=== PATIENT | male | born 1945 | race Caucasian/White ===

== ENCOUNTER 2024-03-22 21:51 | Inpatient (IN) | payer MEDICARE, BC ==
[~2024-03-22 21:51] MED LIST: Iopamidol 370 76% 100 ML VIAL ONE
[2024-03-22] MEDS ORDERED: Morphine 4 MG/ML VIAL ONE (23:37)
[2024-03-22 23:41] LABS: #Basophils 0.06 10x3/uL (0.0-0.2); #Monocytes 0.84 10x3/uL (0.0-1.1); #Neutrophils 8.64 10x3/uL (1.5-8.4); %Basophils 0.6 % (0.0-2.0); %Eosinophils 1.8 % (0.0-6.0); %Lymphocytes 9.6 % (18.0-47.0); %Monocytes 7.8 % (0.0-10.0); %Neutrophils 79.8 % (40.0-75.0); Hematocrit 47.6 % (38.8-50.0); Hemoglobin 16.4 g/dL (13.5-17.5); Mean Corpuscular HGB CONC 34.5 g/dL (32.0-36.0); Mean Corpuscular Hemoglobin 30.2 pg (27.0-33.0); Mean Corpuscular Volume 87.7 fL (81.2-95.1); Mean Platelet Volume 10.4 fL (7.4-10.4); Platelet Count 186 10x3/uL (150-450); RBC Distribution Width 13.3 % (11.5-14.5); Red Blood Cell (RBC) Count 5.43 10x6/uL (4.32-5.72); White Blood Cell (WBC) Count 10.8 10x3/uL (3.5-10.5)
[2024-03-22 23:45] LABS: ALT (SGPT) 24 U/L (8-55); AST (SGOT) 17 U/L (5-34); Albumin 4.3 g/dL (3.4-4.8); Alkaline Phosphatase 139 U/L (40-110); Anion Gap 15 mmol/L (10-20); BUN (Urea Nitrogen) 21 mg/dL (8.4-25.7); Bilirubin, Total 0.4 mg/dL (0.2-1.2); Calc. Creatinine Clearance 0 mL/min (70-130); Calcium 10.1 mg/dL (7.8-10.44); Carbon Dioxide 25 mmol/L (23-31); Chloride 98 mmol/L (98-107); Estimated GFR 88; Globulin 3.2 g/dL (2.4-3.5); Glucose 320 mg/dL (83-110); Lipase 10 U/L (8-78); Potassium 4.6 mmol/L (3.5-5.1); Protein, Total 7.5 g/dL (5.8-8.1); Sodium 133 mmol/L (136-145)
[2024-03-22 23:51] LABS: Troponin I 0.014 ng/mL (< 0.028)
[2024-03-23] MEDS ORDERED: Morphine 4 MG/ML VIAL ONE (00:49)
[2024-03-23] MEDS ORDERED: fentaNYL 50 mcg/mL 1 mL Vial ONE ×2 (00:57→08:03)
[2024-03-23] MEDS ORDERED: Lactulose 20 GM (30 mL) UDCUP ONE (02:58)
[2024-03-23] MEDS ORDERED: Senokot S 8.6-50 MG TAB ONE ×2 (02:59→08:24)
[2024-03-23 03:41] LABS: Bilirubin Neg (Negative); Blood, Urine 25 (Negative); Clarity Slightly Cloudy (Clear); Glucose, Urine (Dipstick) >=1000 mg/dL (Negative); Ketone, Urine 15 mg/dL (Negative); Leukocyte 500 (Negative); Nitrite Positive (Negative); Protein, Urine (Dipstick) 100 mg/dl (Neg-Trace)
[2024-03-23] MEDS ORDERED: Glucagon 1 MG/ML KIT IM PRN (03:47)
[2024-03-23] MEDS ORDERED: Dextrose 5% in Water 1,000 ML IV PRN (03:47)
[2024-03-23] MEDS ORDERED: Ondansetron PF 4 MG/2 ML Vial IVP PRN (03:47)
[2024-03-23] MEDS ORDERED: Dextrose 50% Abboject 50 ML SYRINGE SLOW IVP PRN (03:47)
[2024-03-23] MEDS ORDERED: Bisacodyl 10 MG SUPP PR PRN (03:50)
[2024-03-23 03:52] LABS: Bacteria/HPF 4+ HPF (None Seen); CAUTI Indications for Culture Pelvic or flank pain; RBC/HPF 0-3 HPF (0-3); Squamous Epithelial 0-3 HPF (0-3); WBC/HPF Greater Than 50 HPF (0-3)
[2024-03-23 03:54] LABS: Urine Culture Reflex Yes Yes
[2024-03-23] MEDS ORDERED: cefTRIAXone (ROCEPHIN) 2 GM VIAL ONE (03:54)
[2024-03-23] MEDS ORDERED: Pantoprazole 40 MG VIAL ONE (07:40)
[2024-03-23] MEDS: Sodium Chloride 0.9% 1,000 ML IV SCH ×2 (08:00→14:34)
[2024-03-23] MEDS: Pantoprazole 40 MG VIAL IVP SCH ×2 (08:01→22:45)
[2024-03-23] MEDS ORDERED: Sucralfate 1 GM/10 ML UDCUP ONE (08:03)
[2024-03-23] MEDS: Sucralfate 1 GM TAB PO SCH (08:16)
[2024-03-23] MEDS: fentaNYL 50 mcg/mL 1 mL Vial SLOW IVP PRN (08:16)
[2024-03-23] MEDS: Baclofen 10 MG TAB PO SCH (08:47)
[2024-03-23] MEDS: Polyethylene Glycol 3350 17 GM Packet PO SCH ×2 (08:47→14:29)
[2024-03-23] MEDS: Senokot S 8.6-50 MG TAB PO SCH (08:47)
[2024-03-23] MEDS: Glimepiride 4 MG TAB PO SCH (08:47)
[2024-03-23] MEDS: Alogliptin 6.25 MG TAB PO SCH (08:47)
[2024-03-23 08:51] LABS: #Basophils 0.03 10x3/uL (0.0-0.2); #Eosinophils 0.01 10x3/uL (0.0-0.5); #Monocytes 1.95 10x3/uL (0.0-1.1); #Neutrophils 16.19 10x3/uL (1.5-8.4); %Basophils 0.2 % (0.0-2.0); %Eosinophils 0.1 % (0.0-6.0); %Monocytes 10.5 % (0.0-10.0); %Neutrophils 86.9 % (40.0-75.0); Anion Gap 19 mmol/L (10-20); BUN (Urea Nitrogen) 24 mg/dL (8.4-25.7); Calc. Creatinine Clearance 0 mL/min (70-130); Calcium 9.2 mg/dL (7.8-10.44); Carbon Dioxide 18 mmol/L (23-31); Chloride 104 mmol/L (98-107); Estimated GFR 91; Glucose 308 mg/dL (83-110); Hematocrit 47.2 % (38.8-50.0); Hemoglobin 15.9 g/dL (13.5-17.5); Mean Corpuscular HGB CONC 33.7 g/dL (32.0-36.0); Mean Corpuscular Hemoglobin 29.4 pg (27.0-33.0); Mean Corpuscular Volume 87.4 fL (81.2-95.1); Mean Platelet Volume 10.4 fL (7.4-10.4); Platelet Count 172 10x3/uL (150-450); Potassium 4.6 mmol/L (3.5-5.1); RBC Distribution Width 13.6 % (11.5-14.5); Sodium 136 mmol/L (136-145); White Blood Cell (WBC) Count 18.6 10x3/uL (3.5-10.5)
[2024-03-23] MEDS: tiZANidine HCl 4 MG TAB PO PRN (14:32)
[2024-03-23] MEDS: Insulin Lispro 100 UNIT/ML 10 ML VIAL SC PRN (18:07)
[2024-03-23] MEDS: FLU (Fluad Triv) TS24-25 (65UP)/MF59C/PF 45 MCG/0.5 ML Syringe IM ONE (18:09)
[2024-03-23] MEDS ORDERED: Pantoprazole 40 MG VIAL IVP SCH (21:00)
[2024-03-23] MEDS: Nystatin/Triamcinolone Cream 15 GM TUBE TOP SCH ×2 (22:42→22:44)
[2024-03-23] MEDS: Enoxaparin 40 MG (0.4 mL) SYRINGE SC SCH (22:44)
[2024-03-24] MEDS: Lidocaine 4% Patch TD SCH (01:35)
[2024-03-24] MEDS: cefTRIAXone\\ROCEPHIN 1 GM in Sodium Chloride 0.9% 100 ML IVPB SCH (04:44)
[2024-03-24 05:37] LABS: #Basophils 0.03 10x3/uL (0.0-0.2); #Eosinophils 0.06 10x3/uL (0.0-0.5); #Monocytes 2.24 10x3/uL (0.0-1.1); #Neutrophils 12.16 10x3/uL (1.5-8.4); %Basophils 0.2 % (0.0-2.0); %Eosinophils 0.4 % (0.0-6.0); %Lymphocytes 5.6 % (18.0-47.0); %Monocytes 14.5 % (0.0-10.0); %Neutrophils 78.8 % (40.0-75.0); Hematocrit 44.2 % (38.8-50.0); Hemoglobin 14.7 g/dL (13.5-17.5); Mean Corpuscular HGB CONC 33.3 g/dL (32.0-36.0); Mean Corpuscular Hemoglobin 29.3 pg (27.0-33.0); Mean Corpuscular Volume 88.2 fL (81.2-95.1); Platelet Count 156 10x3/uL (150-450); Red Blood Cell (RBC) Count 5.01 10x6/uL (4.32-5.72); White Blood Cell (WBC) Count 15.4 10x3/uL (3.5-10.5)
[2024-03-24 05:44] LABS: Anion Gap 15 mmol/L (10-20); BUN (Urea Nitrogen) 24 mg/dL (8.4-25.7); Calc. Creatinine Clearance 104 mL/min (70-130); Calcium 8.8 mg/dL (7.8-10.44); Carbon Dioxide 20 mmol/L (23-31); Chloride 107 mmol/L (98-107); Estimated GFR 94; Glucose 287 mg/dL (83-110); Sodium 138 mmol/L (136-145)
[2024-03-24 05:59] LABS: Potassium 3.9 mmol/L (3.5-5.1)
[2024-03-24] MEDS: traMADol HCl 50 MG TAB PO PRN (08:39)
[2024-03-24] MEDS: Floranex 1 GM Packet PO SCH (08:41)
[2024-03-24 13:19] VITALS: BMI 25.7
[2024-03-24] MEDS: Transdermal Patch Removal TOP SCH (14:47)
[2024-03-24 15:20] VITALS: BMI 30.4
[2024-03-24] MEDS: Atorvastatin Calcium 20 MG TAB PO SCH (22:12)
[2024-03-25 09:18] LABS: #Basophils 0.05 10x3/uL (0.0-0.2); #Eosinophils 0.21 10x3/uL (0.0-0.5); #Monocytes 0.91 10x3/uL (0.0-1.1); #Neutrophils 8.21 10x3/uL (1.5-8.4); %Basophils 0.5 % (0.0-2.0); %Monocytes 8.7 % (0.0-10.0); %Neutrophils 78.3 % (40.0-75.0); Hematocrit 41.7 % (38.8-50.0); Hemoglobin 14.3 g/dL (13.5-17.5); Mean Corpuscular HGB CONC 34.3 g/dL (32.0-36.0); Mean Corpuscular Hemoglobin 30.4 pg (27.0-33.0); Mean Corpuscular Volume 88.5 fL (81.2-95.1); Mean Platelet Volume 10.7 fL (7.4-10.4); Platelet Count 142 10x3/uL (150-450); RBC Distribution Width 14.1 % (11.5-14.5); Red Blood Cell (RBC) Count 4.71 10x6/uL (4.32-5.72); White Blood Cell (WBC) Count 10.5 10x3/uL (3.5-10.5)
[2024-03-25] MEDS: Lisinopril 20 MG TAB PO SCH (09:40)
[2024-03-25] MEDS: Ascorbic Acid 500 mg Chewable Tablet PO SCH (09:41)
[2024-03-25 09:42] LABS: Anion Gap 11 mmol/L (10-20); BUN (Urea Nitrogen) 22 mg/dL (8.4-25.7); Calc. Creatinine Clearance 175 mL/min (70-130); Calcium 8.7 mg/dL (7.8-10.44); Carbon Dioxide 23 mmol/L (23-31); Chloride 108 mmol/L (98-107); Estimated GFR 104; Glucose 137 mg/dL (83-110); Potassium 3.4 mmol/L (3.5-5.1); Sodium 139 mmol/L (136-145)
[2024-03-25] MEDS: Aspirin 81 mg Enteric Coated Tablet PO SCH (09:42)
[2024-03-25] MEDS: Pantoprazole DR 40 MG TAB PO SCH (09:42)
[2024-03-25] MEDS: Finasteride 5 MG TAB PO SCH (09:42)
[2024-03-25] MEDS: Baclofen 10 MG TAB PO SCH ×2 (09:43→13:32)
[2024-03-25] MEDS: Tamsulosin HCl 0.4 MG CAP PO SCH (17:38)
[2024-03-25] MEDS: tiZANidine HCl 4 MG TAB PO PRN (21:51)
[2024-03-26 04:51] LABS: Anion Gap 13 mmol/L (10-20); BUN (Urea Nitrogen) 22 mg/dL (8.4-25.7); Calc. Creatinine Clearance 179 mL/min (70-130); Calcium 8.7 mg/dL (7.8-10.44); Carbon Dioxide 22 mmol/L (23-31); Chloride 105 mmol/L (98-107); Estimated GFR 105; Glucose 160 mg/dL (83-110); Potassium 3.3 mmol/L (3.5-5.1); Sodium 137 mmol/L (136-145)
[2024-03-26 05:03] LABS: #Basophils 0.05 10x3/uL (0.0-0.2); #Eosinophils 0.22 10x3/uL (0.0-0.5); #Monocytes 0.84 10x3/uL (0.0-1.1); #Neutrophils 7.03 10x3/uL (1.5-8.4); %Basophils 0.5 % (0.0-2.0); %Eosinophils 2.4 % (0.0-6.0); %Lymphocytes 11.3 % (18.0-47.0); %Monocytes 9.1 % (0.0-10.0); %Neutrophils 76.3 % (40.0-75.0); Hematocrit 39.7 % (38.8-50.0); Hemoglobin 13.5 g/dL (13.5-17.5); Mean Corpuscular Hemoglobin 30.2 pg (27.0-33.0); Mean Corpuscular Volume 88.8 fL (81.2-95.1); Mean Platelet Volume 10.7 fL (7.4-10.4); Platelet Count 146 10x3/uL (150-450); RBC Distribution Width 13.9 % (11.5-14.5); Red Blood Cell (RBC) Count 4.47 10x6/uL (4.32-5.72); White Blood Cell (WBC) Count 9.2 10x3/uL (3.5-10.5)
[2024-03-26] MEDS: Potassium Chloride 20 MEQ TAB PO SCH (11:11)
[2024-03-26] MEDS: Acetaminophen 325 MG TAB PO PRN (16:39)
[2024-03-26] MEDS ORDERED: Polyethylene Glycol 3350 17 GM Packet PO PRN (17:18)
[2024-03-26 18:27] LABS: Magnesium 1.7 mg/dL (1.6-2.6)
[2024-03-26] MEDS: Senokot S 8.6-50 MG TAB PO SCH (21:53)
[2024-03-27] MEDS: Amlodipine 5 MG TAB PO SCH ×2 (01:51→08:43)
[2024-03-27 04:12] LABS: Anion Gap 16 mmol/L (10-20); BUN (Urea Nitrogen) 13 mg/dL (8.4-25.7); Calc. Creatinine Clearance 175 mL/min (70-130); Calcium 8.9 mg/dL (7.8-10.44); Carbon Dioxide 23 mmol/L (23-31); Chloride 103 mmol/L (98-107); Estimated GFR 104; Glucose 144 mg/dL (83-110); Potassium 3.5 mmol/L (3.5-5.1); Sodium 138 mmol/L (136-145)
[2024-03-27] MEDS: Magnesium Oxide 400 MG TAB PO SCH (08:43)
[2024-03-27] MEDS: Milk Of Magnesia 30 ML UDCUP PO SCH (14:49)
[2024-03-27] MEDS ORDERED: hydrALAZINE 20 MG/ML VIAL SLOW IVP PRN (17:15)
[2024-03-27] MEDS: hydrALAZINE 20 MG/ML VIAL SLOW IVP SCH (17:29)
[2024-03-27] MEDS: hydrALAZINE 20 MG/ML VIAL ONE (18:00)
[2024-03-28 04:03] LABS: #Basophils 0.06 10x3/uL (0.0-0.2); #Monocytes 1.06 10x3/uL (0.0-1.1); #Neutrophils 6.83 10x3/uL (1.5-8.4); %Basophils 0.6 % (0.0-2.0); %Eosinophils 2.1 % (0.0-6.0); %Lymphocytes 11.2 % (18.0-47.0); %Monocytes 11.4 % (0.0-10.0); %Neutrophils 73.4 % (40.0-75.0); Hematocrit 41.8 % (38.8-50.0); Hemoglobin 14.6 g/dL (13.5-17.5); Mean Corpuscular HGB CONC 34.9 g/dL (32.0-36.0); Mean Corpuscular Volume 85.8 fL (81.2-95.1); Mean Platelet Volume 10.3 fL (7.4-10.4); Platelet Count 174 10x3/uL (150-450); RBC Distribution Width 13.5 % (11.5-14.5); Red Blood Cell (RBC) Count 4.87 10x6/uL (4.32-5.72); White Blood Cell (WBC) Count 9.3 10x3/uL (3.5-10.5)
[2024-03-28 04:14] LABS: Anion Gap 15 mmol/L (10-20); BUN (Urea Nitrogen) 15 mg/dL (8.4-25.7); Calc. Creatinine Clearance 168 mL/min (70-130); Carbon Dioxide 20 mmol/L (23-31); Chloride 102 mmol/L (98-107); Estimated GFR 103; Glucose 171 mg/dL (83-110); Potassium 3.4 mmol/L (3.5-5.1); Sodium 134 mmol/L (136-145)
[2024-03-28 07:02] LABS: Campy jejuni + coli by PCR Negative (Negative); STEC Shiga Toxin 1+2 Negative (Negative); Salmonella spp. by PCR Negative (Negative); Shigella spp + EIEC by PCR Negative (Negative)
[2024-03-28] MEDS: Potassium Chloride 20 MEQ TAB PO SCH (09:51)
[2024-03-28] MEDS: Sodium Chloride 0.9% 1,000 ML IV SCH (17:19)
[2024-03-29 04:37] LABS: #Basophils 0.06 10x3/uL (0.0-0.2); #Eosinophils 0.44 10x3/uL (0.0-0.5); #Neutrophils 4.98 10x3/uL (1.5-8.4); %Basophils 0.8 % (0.0-2.0); %Eosinophils 5.5 % (0.0-6.0); %Monocytes 12.6 % (0.0-10.0); %Neutrophils 62.5 % (40.0-75.0); Hemoglobin 14.2 g/dL (13.5-17.5); Mean Corpuscular HGB CONC 33.8 g/dL (32.0-36.0); Mean Corpuscular Hemoglobin 29.6 pg (27.0-33.0); Mean Corpuscular Volume 87.5 fL (81.2-95.1); Mean Platelet Volume 10.8 fL (7.4-10.4); Platelet Count 175 10x3/uL (150-450); RBC Distribution Width 13.9 % (11.5-14.5)
[2024-03-29 04:43] LABS: Anion Gap 14 mmol/L (10-20); BUN (Urea Nitrogen) 18 mg/dL (8.4-25.7); Calc. Creatinine Clearance 175 mL/min (70-130); Calcium 8.6 mg/dL (7.8-10.44); Carbon Dioxide 22 mmol/L (23-31); Chloride 106 mmol/L (98-107); Estimated GFR 104; Glucose 168 mg/dL (83-110); Potassium 3.8 mmol/L (3.5-5.1); Sodium 138 mmol/L (136-145)
[2024-03-29 16:30] VITALS: BP 153/79; TEMP 98.2
== END 2024-03-29 17:19 | disposition home or self-care (01) | DRG 698 ==
LOC: CSHERS 21:51 → CSHERHOLD 03-23 03:53 → CSHTELE 03-23 14:03 → OBSVTOIN 03-24 16:20
PROVIDERS: ADMIT Student in an Organized Health Care Education/Training Program; ATTEND Internal Medicine
DX: T83.518A Infection and inflammatory reaction due to other urinary catheter, initial encounter (principal); A41.9 Sepsis, unspecified organism; G82.50 Quadriplegia, unspecified; G93.41 Metabolic encephalopathy; R65.20 Severe sepsis without septic shock; N30.00 Acute cystitis without hematuria; E87.20 Acidosis, unspecified; I10 Essential (primary) hypertension; E11.9 Type 2 diabetes mellitus without complications; E86.0 Dehydration; N31.9 Neuromuscular dysfunction of bladder, unspecified; N40.0 Benign prostatic hyperplasia without lower urinary tract symptoms; Z74.01 Bed confinement status; I71.21 Aneurysm of the ascending aorta, without rupture; K59.00 Constipation, unspecified; E87.6 Hypokalemia; Y84.6 Urinary catheterization as the cause of abnormal reaction of the patient, or of later complication, without mention of misadventure at the time of the procedure; Z79.82 Long term (current) use of aspirin; Z79.890 Hormone replacement therapy; Z79.899 Other long term (current) drug therapy
CPT/HCPCS: 36415; 36416; 71275; 74018; 74176; 74177; 80048; 80053; 81001; 83605; 83690; 83735; 83880; 84443; 84484; 85025; 87077; 87086; 87186; 87324; 87449; 87505; 93005; 94760; 94762; 96372; 96374; 96375; 96376; 97139; G0378; J0360; J0696; J1650; J1815; J2272; J2470; J3010; J7030

== ENCOUNTER 2025-02-01 13:12 | Outpatient (CLI) | payer MEDICARE, BC | END 2025-02-01 13:13 | disposition home or self-care (01) | LOC: CSHULT 13:12 | PROVIDERS: ATTEND Surgery | DX: I70.203 Unspecified atherosclerosis of native arteries of extremities, bilateral legs (principal); R93.6 Abnormal findings on diagnostic imaging of limbs | CPT/HCPCS: 93923 ==